=== PATIENT | female | born 1975 | race Caucasian/White ===

== ENCOUNTER 2019-05-12 10:52 | Emergency (ER) | payer OTHER ==
--- OUTSIDE RECORDS SUMMARY | 2019-05-12 10:59 | XMS REPORT | Continuity of Care Document ---
:1975 External Reference #:[id number] Author Name Ish Yeboah, N.P. 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 Onset: 04/14/2015 Depressive disorder Ish Yeboah, N.P. Onset: 04/14/2015 Low back pain Ish Yeboah, N.P. Onset: 07/22/2016 H/O: tubal ligation Ish Yeboah, N.P. Onset: 10/11/2016 Pure hypercholesterolemia Ish Yeboah, N.P. Onset: 12/20/2017 Partial hysterectomy Ish Yeboah, N.P. Onset: 08/01/2018 Social History Type Date Description Comments Sex Unknown Tobacco Use Start: Unknown current cigarette smoker ETOH Use Occasionally consumes alcohol Tobacco Use Start: Unknown Patient is a current smoker, smokes every day Allergies, Adverse Reactions, Alerts Active Allergies Reaction Severity Comments Date Morphine 06/10/2009 Levaquin 08/04/2018 Medications Active Medications SIG Qnty Indications Ordering Date Provider Fluticasone Propionate 2 sprays each 9.900ml [place] 02/27/2019 nostril every Ish N.P. 50mcg/Act Suspension morning Proctozone-HC Use as Directed 30units [place], 01/26/2019 2.5% Cream By MD Deng, N.P. Hydrocortisone use as directed 30gm [place], 10/30/2018 2.5% Cream Mashelle, N.P. Butalbital/Acetaminoph 1-2 by mouth 40tabs [place], 03/23/2018 en/Caffeine every 4h as Mashelle, N.P. 50-325-40mg needed headache Tablets Atorvastatin Calcium 1 by mouth every 90tabs [place], 11/22/2017 10mg day Mashelle, N.P. Tablets Hydrocodone-Acetaminop 1 by mouth every 40tabs [place], 03/21/2017 hen 4-6h as needed Mashelle, N.P. 5-325mg Tablets pain Escitalopram Oxalate take one tablet 90tabs [place], 01/28/2017 20mg by mouth every Mashelle, N.P. Tablets day Loratadine 1 by mouth every 30tabs [place], 06/14/2016 10mg Tablets day Mashelle, N.P. Iron [place], 05/19/2016 325(65Fe) mg Tablets Mashelle, N.P. Valacyclovir HCL 2 by mouth twice 12 [place], 04/19/2016 1gm a day as Mashelle, N.P. Tablets directed Magnesium [place], 09/09/2015 400mg Tablets Mashelle, N.P. Proair HFA 2 puffs qid prn 1can [place], 01/09/2013 108(90Base) Mashelle, N.P. mcg/Act Aerosol Levothyroxine Sodium take one tablet 30tabs [place], by mouth every Mashelle, N.P. 25mcg Tablets day on empty stomach Medications Administered in Office Medication SIG Qnty Indications Ordering Provider Date Milan Cid MD 01/20/2010 Injection Ish Banks, N.P. 01/12/2010 Injection Immunizations CPT Code Status Date Vaccine Reaction Lot # 31236 Given 03/02/2018 Influenza Vac, [id number] Quadrivalent, Split, 0.5mL [place] [address] Given 04/07/2017 Influenza Vac, [id number] Quadrivalent, Split, 0.5mL [place] [address] Given 03/22/2016 Influenza Vac, COUNSELING OF ALL [id number] Quadrivalent, Split, 0.5mL COMPONENTS COMPLETED. [place] Use [address] Given 04/14/2015 Influenza Vac, [id number] Quadrivalent, Split, 0.5mL [place], [place] Use [address] Given 04/09/2014 Afluria Or Fluvirin Flu [id number] Vac Intramuscular Q2038 Given 03/23/2013 Fluzone Trivalent [id number] Immunization 40366 Given 03/26/2010 Afluria Or Fluvirin Flu [id number] Vac Intramuscular 97969 Given 12/31/2009 Tetanus And Diptheria [id number] Toxoids For Adult Use-preservative free Vital Signs Date Vital Result Comment 03/23/2019 9:42am Body Temperature 97.0 F Weight 154.12 lb Heart Rate 72 /min BP Systolic 118 mmHg BP Diastolic 78 mmHg O2 % BldC Oximetry 98 % 02/27/2019 12:54pm Body Temperature 97.2 F Weight 156.12 lb Heart Rate 79 /min BP Systolic 120 mmHg BP Diastolic 86 mmHg O2 % BldC Oximetry 96 % Results Test Date Facility Test Result H/L Range Note Laboratory test finding 12/12/2018 [facility] TSH 0.94 uIU/mL 0.35-4.94 1 Free T4 0.89 ng/dL 0.70-1.48 CBC with Auto Diff-fcmg 10/10/2018 [facility] WBC 11.2 K/uL High 4.1-11.0 2 RBC 4.64 M/uL 4.00-5.40 Hemoglobin 14.5 gm/dL 12.0-16.0 Hematocrit 43.2 % 36.0-47.0 MCV 93.1 fL 80.0-97.0 MCH 31.3 pg 27.0-32.0 MCHC 33.7 g/dL 32.0-36.0 RDW 14.8 % High 11.5-14.5 PLT Count 302 K/ul 140-400 MPV 8.7 FL 7.1-10.7 Neutrophil 74.7 % 35.0-75.0 Lymphocyte 16.5 % 16.0-52.0 Monocyte 6.7 % 2.0-10.0 Eosinophil 1.4 % 0.0-5.0 Basophil 0.7 % 0.0-4.0 Abs Neutrophils 8.4 K/uL High 2.1-8.0 Abs Lymphocytes 1.8 K/uL 0.8-5.5 Abs Monocytes 0.8 K/uL 0.1-1.0 Abs Eosinophils 0.2 K/uL 0.0-0.5 Abs Basophils 0.1 K/uL 0.0-0.3 Comprehensive Met Panel-[facility] 10/10/2018 [facility] Sodium 142 mmol/L 135- 146 3 Potassium 5.0 mmol/L 3.5-5.2 Chloride# 106 mmol/L 97-110 4 Carbon Dioxide 27 mmol/L 24-34 Glucose 84 mg/dL 70-105 BUN 10 mg/dL 6-26 Creatinine 0.7 mg/dL 0.5-1.4 Calcium 9.6 mg/dL 8.5-10.2 Total Protein 6.5 g/dL 6.0-8.0 Albumin 4.2 g/dL 3.6-4.9 Globulin 2.3 g/dL 2.0-3.5 A/G Ratio 1.8 Ratio 1.0-2.2 Total Bilirubin 0.3 mg/dL 0.1-1.3 Alkaline Phosphatase 81 U/L 24-140 Alt 9 U/L 3-42 Ast 13 U/L 8-42 Anion Gap 9 mmol/L 5-15 5 Andressa Egfr >60 >60 6 Non Andressa Egfr >60 >60 7 Laboratory test finding 10/10/2018 [facility] TSH 0.93 uIU/mL 0.35-4.94 Lipid 10/10/2018 [facility] Cholesterol 258 mg/dL High 50-199 Triglycerides 133 mg/dL 30-200 HDL 48 mg/dL 35-85 8 Chol/ HDL Ratio 5.4 ratio 3.7-5.6 VLDL 27 mg/dL 2-29 LDL (Calc) 184 mg/dL High 20-99 9 1 Fax [phone]- [phone] Phone [phone]- [phone] Referring Doctor:Meghna Schmidt M.D. This sample is drawn by:JONNATHAN/ARUNA 2 This sample is drawn by:DL/INCIDENT ANALYST 3 Updated reference range on new analyzer 4 Updated reference range on new analyzer 5 Updated Reference Range 6 Concerning GFR Guidelines for Americans: Normal function or mild renal disease, if clinically at risk: >/= 60 mL/min Moderately decreased: 30-59 Severely decreased: 15-29 Renal failure: <15 7 Concerning GFR Guidelines: Normal function or mild renal disease, if clinically at risk: >/= 60 mL/min Moderately decreased: 30-59 Severely decreased: 15-29 Renal failure: <15 Glomerular Filtration Rate (GFR) is estimated based on the MDRD equation, which assumes a steady state for creatinine as recommended by the National Kidney Disease Education Program in conjunction with the National Institutes of Health and the National Kidney Foundation. Clinical conditions in which it may be necessary to measure GFR by using clearance methods include extremes of age and body size, severe malnutrition or obesity, diseases of skeletal muscle, paraplegia or quadriplegia, vegetarian diet, rapidly changing kidney function, and calculation of the dose of potentially toxic drugs that are excreted by the kidneys. 8 Per NCEP ATP III Guidelines: Results lower than 40 mg/dL are suggestive of increased risk for coronary artery disease. Results > or = to 60 mg/dL are considered a negative risk factor. 9 Per NCEP ATP III Guidelines: Normal Population <130 Patients with medical conditions: CHD/DM Optimal: <100 Borderline high: 130-159 High: 160-189 Very high: >189 Procedures Description No Information Available Medical Devices Description No Information Available Encounters Type Date Location Provider Dx Diagnosis Office Visit 02/27/2019 Ish Abbasi, G43.109 Migraine with aura, 1:00p N.P. not intractable, w/o status migrainosus J30.9 Allergic rhinitis, unspecified M25.511 Pain in RIGHT shoulder Office Visit 01/25/2019 11:00a Ish Abbasi, G43.109 Migraine with aura, N.P. not intractable, w/o status migrainosus E07.9 Disorder of thyroid, unspecified Office Visit 12/25/2018 10:15a Ish Abbasi, E66.9 Obesity, unspecified N.P. G43.109 Migraine with aura, not intractable, w/o status migrainosus Z68.28 Body mass index (BMI) 28.0-28.9, adult Office Visit 11/28/2018 11:45a Ish Abbasi, J01.00 Acute maxillary N.P. sinusitis, unspecified G43.109 Migraine with aura, not intractable, w/o status migrainosus F39 Unspecified mood [affective] disorder Office Visit 11/10/2018 10:30a Brien Ish Yeboah, E07.9 Disorder of thyroid, N.P. unspecified R53.83 Other fatigue D72.829 Elevated white blood cell count, unspecified Office Visit 10/30/2018 11:15a Brien Ish Yeboah, G43.009 Migraine w/o aura, N.P. not intractable, w/o status migrainosus D72.829 Elevated white blood cell count, unspecified Z68.29 Body mass index (BMI) 29.0-29.9, adult Office Visit 10/10/2018 9:45a Brien Ish Yeboah, Z68.29 Body mass index N.P. (BMI) 29.0-29.9, adult R53.83 Other fatigue D64.9 Anemia, unspecified E66.8 Other obesity Z13.31 Encounter for screening for depression Assessments Date Code Description Provider 03/23/2019 G43.109 Migraine with aura, not intractable, [place], Mashelle, N.P. without status migraino 03/23/2019 E03.9 Hypothyroidism, unspecified [place], Mashelle, N.P. 03/23/2019 R53.83 Other fatigue [place], Corneliohelle, N.P. 02/27/2019 G43.109 Migraine with aura, not intractable, [place], Mashelle, N.P. without status migraino 02/27/2019 J30.9 Allergic rhinitis, unspecified [place], Mashelle, N.P. 02/27/2019 M25.511 Pain in RIGHT shoulder [place], Corneliohelle, N.P. 01/25/2019 G43.109 Migraine with aura, not intractable, [place], Mashelle, N.P. without status migraino 01/25/2019 E07.9 Disorder of thyroid, unspecified [place], Mashelle, N.P. 12/25/2018 E66.9 Obesity, unspecified [place], Mashelle, N.P. 12/25/2018 G43.109 Migraine with aura, not intractable, [place], Mashelle, N.P. without status migraino 12/25/2018 Z68.28 Body mass index (BMI) 28.0-28.9, adult [place], Mashelle, N.P. 12/12/2018 E07.9 Disorder of thyroid, unspecified Tiffanie Yeboahle, N.P. 12/12/2018 E07.9 Disorder of thyroid, unspecified Nurses Schedule [place] 12/12/2018 E07.9 Disorder of thyroid, unspecified [facility] 11/28/2018 J01.00 Acute maxillary sinusitis, unspecified Tiffanie Yeboahle, N.P. 11/28/2018 G43.109 Migraine with aura, not intractable, Tiffanie Yeboahle, N.P. without status migraino 11/28/2018 F39 Unspecified mood [affective] disorder Ish Yeboah, N.P. 11/10/2018 E07.9 Disorder of thyroid, unspecified Tiffanie Yeboahle, N.P. 11/10/2018 R53.83 Other fatigue Tiffanie Yeboahle, N.P. 11/10/2018 D72.829 Elevated white blood cell count, Ish Yeboah, N.P. unspecified 10/30/2018 G43.009 Migraine without aura, not intractable, Tiffanie Yeboahle , N.P. without status migra 10/30/2018 D72.829 Elevated white blood cell count, Ish Yeboah, N.P. unspecified 10/30/2018 Z68.29 Body mass index (BMI) 29.0-29.9, adult Tiffanie Yeboahle, N.P. 10/10/2018 Z68.29 Body mass index (BMI) 29.0-29.9, adult Tiffanie Yeboahle, N.P. 10/10/2018 R53.83 Other fatigue Tiffanie Yeboahle, N.P. 10/10/2018 D64.9 Anemia, unspecified Tiffanie Yeboahle, N.P. 10/10/2018 E66.8 Other obesity Tiffanie Yeboahle, N.P. 10/10/2018 Z13.31 Encounter for screening for depression Ish Yeboah, N.P. 10/10/2018 R53.83 Other fatigue [facility] 10/10/2018 D64.9 Anemia, unspecified [facility] 10/10/2018 E66.8 Other [facility] Plan of Treatment 03/23/2019 - Ish Yeboah, N.P.G43.109 Migraine with aura, not intractable, without status migrainoComments:take NSAID as directed at first sign of headacheavoid bright lights/noisereport increasing or chgingheadache ulchrmxrxnzgazuT62.9 Hypothyroidism, unspecifiedComments:stable with medications , euthyroid, recheck q 3 moR53.83 Other fatigueComments:most likely result of lifestylediscussed weight, inactivity, smoking, poor eating habits as contributors to fatigueflu lab results Functional Status Description No Information Available Mental Status Description No Information Available Referrals Refer to Dr Reason for Referral Status Appt Date Meghna Schmidt MD request from Dr. Flores for enlarged thyroid, new Closed nodules [address] [place] [address] [phone]
--- OUTSIDE RECORDS SUMMARY | 2019-05-12 10:59 | XMS REPORT | Continuity of Care Document ---
:1975 External Reference #:[id number] Author Name Ish Yeboah, N.P. 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 Butalbital/Acetaminoph 1-2 by mouth 40tabs [place], 03/23/2018 en/Caffeine every 4h as Mashelle, N.P. 50-325-40mg needed headache Tablets Atorvastatin Calcium 1 by mouth every 90tabs [place], 11/22/2017 10mg day Mashelle, N.P. Tablets Hydrocodone-Acetaminop 1 by mouth every 40tabs [place], 03/21/2017 hen 4-6h as needed Mashelle, N.P. 5-325mg Tablets pain Escitalopram Oxalate take one tablet 90tabs [place], 01/28/2017 20mg by mouth every Mashelle, N.P. Tablets day Loratadine 1 by mouth every 30tabs [place], 06/14/2016 10mg Tablets day Mashelle, N.P. Iron [place], 05/19/2016 325(65Fe) mg Tablets Mashelle, N.P. Valacyclovir HCL 2 by mouth twice 12ta [place], 04/19/2016 1gm a day as Mashelle, N.P. Tablets directed Magnesium [place], 09/09/2015 400mg Tablets Mashelle, N.P. Proair HFA 2 puffs qid prn 1can [place], 01/09/2013 108(90Base) Mashelle, N.P. mcg/Act Aerosol Levothyroxine Sodium take one tablet 30tabs [place], by mouth every Mashelle, N.P. 25mcg Tablets day on empty stomach Medications Administered in Office Medication SIG Qnty Indications Ordering Provider Date Milan Cid MD 01/20/2010 Injection Ish Banks, N.P. 01/12/2010 Injection Immunizations CPT Code Status Date Vaccine Reaction Lot # 57517 Given 04/16/2019 Influenza Vac, [id number] Quadrivalent, Split, 0.5mL [place] [address] Given 03/02/2018 Influenza Vac, [id number] Quadrivalent, Split, 0.5mL [place] [address] Given 04/07/2017 Influenza Vac, [id number] Quadrivalent, Split, 0.5mL [place], [place] Use 57311 Given 03/22/2016 Influenza Vac, COUNSELING OF ALL [id number] Quadrivalent, Split, 0.5mL COMPONENTS COMPLETED[place] [address] Given 04/14/2015 Influenza Vac, [id number] Quadrivalent, Split, 0.5mL Dosage, [place] Use 05424 Given 04/09/2014 Afluria Or Fluvirin Flu [id number] Vac Intramuscular Q2038 Given 03/23/2013 Fluzone Trivalent [id number] Immunization 76915 Given 03/26/2010 Afluria Or Fluvirin Flu [id number] Vac Intramuscular 56997 Given 12/31/2009 Tetanus And Diptheria [id number] Toxoid 7 Years And Older Preserv Free Vital Signs Date Vital Result Comment 04/26/2019 11:22am Body Temperature 97.7 F Weight 154.00 lb Heart Rate 86 /min BP Systolic 134 mmHg BP Diastolic 82 mmHg O2 % BldC Oximetry 96 % 03/23/2019 9:42am Body Temperature 97.0 F Weight 154.12 lb Heart Rate 72 /min BP Systolic 118 mmHg BP Diastolic 78 mmHg O2 % BldC Oximetry 98 % Results Test Date Facility Test Result H/L Range Note Laboratory test finding 12/12/2018 [facility] TSH 0.94 uIU/mL 0.35-4.94 1 Free T4 0.89 ng/dL 0.70-1.48 1 Fax [phone]- [phone] Phone [phone]- [phone] Referring Doctor:Meghna Schmidt M.D. This sample is drawn by:JONNATHAN/ARUNA Procedures Description No Information Available Medical Devices Description No Information Available Encounters Type Date Location Provider Dx Diagnosis Office Visit 04/26/2019 Ish Abbasi, G43.109 Migraine with aura, 11:45a N.P. not intractable, w/o status migrainosus Office Visit 03/23/2019 Ish Abbasi G43.109 Migraine with aura, 10:00a N.P. not intractable, w/o status migrainosus E03.9 Hypothyroidism, unspecified R53.83 Other fatigue Office Visit 02/27/2019 1:00p Ish Abbasi G43.109 Migraine with aura, N.P. not intractable, w/o status migrainosus J30.9 [...] mood [affective] disorder Office Visit 11/10/2018 10:30a Ish Abbasi, E07.9 Disorder of thyroid, N.P. unspecified R53.83 Other fatigue D72.829 Elevated white blood cell count, unspecified Assessments Date Code Description Provider 04/26/2019 G43.109 Migraine with aura, not intractable, [place], Mashelle, N.P. without status migraino 04/16/2019 Z23 Encounter for immunization [place], Tiffaniele, N.P. 03/23/2019 G43.109 Migraine with aura, not intractable, [place], Mashelle, N.P. without status migraino 03/23/2019 E03.9 Hypothyroidism, unspecified [place], Mashelle, N.P. 03/23/2019 R53.83 Other fatigue [place], Mashelle, N.P. 02/27/2019 G43.109 Migraine with aura, not intractable, [place], Mashelle, N.P. without status migraino 02/27/2019 J30.9 Allergic rhinitis, unspecified [place], Mashelle, N.P. 02/27/2019 M25.511 Pain in RIGHT shoulder [place], Tiffaniele, N.P. 01/25/2019 G43.109 Migraine with aura, not intractable, [place], Mashelle, N.P. without status migraino 01/25/2019 E07.9 Disorder of thyroid, unspecified Tiffanie Yeboahle, N.P. 12/25/2018 E66.9 Obesity, unspecified [place], Tiffaniele, N.P. 12/25/2018 G43.109 Migraine with aura, not intractable, [place], Corneliohelle, N.P. without status migraino 12/25/2018 Z68.28 Body mass index (BMI) 28.0-28.9, adult [place], Tiffaniele, N.P. 12/12/2018 E07.9 Disorder of thyroid, unspecified [place], Tiffaniele, N.P. 12/12/2018 E07.9 Disorder of thyroid, unspecified Nurses Schedule [place] 12/12/2018 E07.9 Disorder of thyroid, unspecified [facility] 11/28/2018 J01.00 Acute maxillary sinusitis, unspecified Tiffanie Yeboahle, N.P. 11/28/2018 G43.109 Migraine with aura, not intractable, Tiffanie Yeboahle, N.P. without status migraino 11/28/2018 F39 Unspecified mood [affective] disorder Tiffanie Yeboahle, N.P. 11/10/2018 E07.9 Disorder of thyroid, unspecified Tiffanie Yeboahle, N.P. 11/10/2018 R53.83 Other fatigue Tiffanie Yeboahle, N.P. 11/10/2018 D72.829 Elevated white blood cell count, Tiffanie Yeboahle, N.P. unspecified Plan of Treatment 04/26/2019 - Tiffanie Yeboahle, N.P.G43.109 Migraine with aura, not intractable, without status migrainoComments:take NSAID as directed at first sign of headacheuse meds as directedavoid bright lights/noisereport increasing or chging headache characteristics Functional Status Description No Information Available Mental Status Description No Information Available Referrals Refer to Dr Reason for Referral Status Appt Date Meghna Schmidt MD request from Dr. Flores for enlarged thyroid, new Closed nodules [address] [place] [employer], [place] [id number] [phone]
[2019-05-12 11:30] VITALS: BP 150/93
--- NOTE | 2019-05-12 12:25 | UC ---
Throat Pain/Nasal Power HPI - HPI Summary HPI Summary: 44 year old female presents with 10 day history of progressively worsening nasal congestion, sinus pressure, bilateral ear pain, sore throat, and harsh, non-productive cough. Reports chest feels tight and "cedillo" with coughing. States last night developed a fever of 102.6 F. Reports is a casual smoker. Denies ear drainage, dysphagia, palpitations, dizziness, lightheadedness, abdominal pain, nausea, vomiting, or diarrhea. - History of Current Complaint Chief Complaint: UCRespiratory Stated Complaint: FEVER,COUGH,CONGESTION Time Seen by Provider: 05/12/19 12:09 Hx Obtained From: Patient Hx Last Menstrual Period: 11/11 Pain Intensity: 6 - Allergies/Home Medications Allergies/Adverse Reactions: Allergies Allergy/AdvReac Type Severity Reaction Status Date / [facility] Allergy Swelling Verified 05/12/19 11:22 Of Face,Lips,& Throat morphine Allergy Anaphylatic Verified 05/12/19 11:22 Shock Penicillins Allergy Rash Verified 05/12/19 11:22 Home Medications: Home Medications Escitalopram * [Lexapro *] 20 mg PO QPM 05/12/19 [History Confirmed 05/12/19] HYDROcodone/ACETAMIN 5-325 MG* [[place] 5-325 TAB*] 1 tab QID PRN 05/12/19 [ History Confirmed 05/12/19] Levothyroxine TAB* [Synthroid 25 MCG TAB*] 1 tab QAM 05/12/19 [History Confirmed 05/12/19] PMH/Surg Hx/FS Hx/Imm Hx Endocrine History: Thyroid Disease Neurological History: Migraine - Surgical History Surgical History: Yes Surgery Procedure, Year, and Place: GALLBLADDER. TONSILS. APPENDIX. Partial hysterectomy - Family History Known Family History: Positive: Non-Contributory - Social History Lives: Alone Alcohol Use: None Substance Use Type: None Smoking Status (MU): Light Every Day Tobacco Smoker Type: Cigarettes Amount Used/How Often: 1/2 pack day - Immunization History Most Recent Influenza Vaccination: no Most Recent Tetanus Shot: needs Review of Systems All Other Systems Reviewed And Are Negative: Yes Constitutional: Positive: Fever, Chills, Fatigue Skin: Negative: Rash Eyes: Negative: Drainage, Eye Redness ENT: Positive: Sore Throat, Ear Ache, Nasal Discharge, Sinus Congestion, Sinus Pain/Tenderness Respiratory: Positive: Shortness Of Breath, Cough Cardiovascular: Negative: Palpitations Gastrointestinal: Negative: Abdominal Pain, Vomiting, Diarrhea, Nausea Genitourinary: Positive: Negative Musculoskeletal: Positive: Negative Neurological: Positive: Negative Is Patient Immunocompromised?: No Physical Exam - Summary Physical Exam Summary: GENERAL APPEARANCE: Well developed, well nourished, alert and cooperative, and appears to be in no acute distress. EYES: Conjunctiva clear. No drainage. EARS: External auditory canals and tympanic membranes clear, hearing grossly intact. NOSE: Moderate nasal congestion. No nasal discharge. Maxillary sinus tenderness. THROAT: Pharyngeal erythema with surgically absent tonsils. Uvula midline. NECK: Neck supple, non-tender without lymphadenopathy. CARDIAC: Normal S1 and S2. No S3, S4 or murmurs. Rhythm is regular. There is no peripheral edema, cyanosis or pallor. Extremities are warm and well perfused. Capillary refill is less than 2 seconds. Peripheral pulses intact. LUNGS: Diffuse bilateral wheezing. Harsh, bronchospastic, non-productive cough. ABDOMEN: Positive bowel sounds. Soft, nondistended, nontender. No guarding or rebound. No masses or hepatosplenomegally. MUSKULOSKELETAL: ROM intact to all extremities. No joint erythema or tenderness. Normal muscular development. Normal gait. SKIN: Skin normal color, texture and turgor with no lesions or eruptions. Triage Information Reviewed: Yes Vital Signs: Initial Vital Signs Temp 98.9 F 05/12/19 11:24 Pulse 88 05/12/19 11:24 Resp 18 05/12/19 11:24 BP 150/93 05/12/19 11:24 Pulse Ox 97 05/12/19 11:24 Vital Signs Reviewed: Yes Throat Pain/Nasal Course/Dx - Course Course Of Treatment: 44 year old female presents with 10 day history of progressively worsening nasal congestion, sinus pressure, bilateral ear pain, sore throat, and harsh, non-productive cough. Reports chest feels tight and "cedillo" with coughing. States last night developed a fever of 102.6 F. Reports is a casual smoker. Denies ear drainage, dysphagia, palpitations, dizziness, lightheadedness, abdominal pain, nausea, vomiting, or diarrhea. Afebrile. Hypertensive otherwise vital signs stable. Patient had moderate nasal congest, maxillary sinus tenderness, pharyngeal erythema with surgically absent tonsils, no cervical lymphadenopathy, diffuse bilateral wheezes, a harsh, bronchospastic cough, non- productive cough, and otherwise unremarkable exam. With the duration of symptoms and new onset of fever last night will treat her for an upper respiratory infection with likely secondary bacterial infection and reactive airway disease. She is to start doxycycline 100 mg BID x 10 days, prednisone 50 mg daily x 5 days, albuterol inhaler 2 puffs every 4-6 hours as needed for SOB/ wheezing/cough, as well as symptomatic care. She is to follow up with her PCP in 3-5 days if symptoms do not improve. Anticipatory guidance and warning symptoms reviewed with patient. Verbalizes understanding and agrees with POC. - Differential Dx/Diagnosis Differential Diagnosis/HQI/PQRI: Otitis Media, Pharyngitis, Sinusitis, Tonsillitis, URI Provider Diagnosis: Upper respiratory infection with cough and congestion, Reactive airway disease that is not asthma Discharge ED - Sign-Out/Discharge Documenting (check all that apply): Patient Departure All imaging exams completed and their final reports reviewed: No Studies - Discharge Plan Condition: Stable Disposition: HOME Prescriptions: Albuterol HFA INHALER* [Ventolin HFA Inhaler*] 2 puff INH Q4H PRN #1 mdi PRN Reason: Sob/Wheezing Doxycycline Hyclate 100 mg PO BID #20 tablet predniSONE TAB* [Deltasone TAB*] 50 mg PO DAILY #5 tab Patient Education Materials: Upper Respiratory Infection (ED) Referrals: Ish Yeboah NP [Primary Care Provider] - Additional Instructions: Your history and exam are consistent with an upper respiratory infection. Considering the duration of your symptoms and the onset of fever last night we will start you on an antibiotic for a likely secondary bacterial infection. Start doxycycline 100 mg twice a day for 10 days. Take prednisone 50 mg 1 tab daily for 5 days to help with the inflammation in your airways and wheezing. Use albuterol inhaler 2 puffs every 4-6 hours as needed for shortness of breath , wheezing, or coughing fit. Use a saline rinse kit such as Neti Pot or NeilMed at least twice a day to help thin secretions and promote drainage of the sinuses. Use fluticasone (Flonase) nasal spray 2 sprays each nostril once daily. Take over the counter acetaminophen (Tylenol) or ibuprofen (Advil, Motrin) according to directions as needed for pain or fever. Use salt water gargles several times a day if you have a sore throat. You may also use Chloraseptic spray or Cepacol lonzenges according to directions which contain a numbing medication and can provide some temporary relief from your sore throat. Follow up with your primary care provider in 3-5 days if symptoms persist. Seek immediate medical attention in the emergency room if you have fever greater than 100.5 F despite taking acetaminophen or ibuprofen, have chest pain , difficulty breathing, are unable to swallow, or have any worsening of symptoms. - Billing Disposition and Condition Condition: STABLE Disposition: Home - Attestation Statements Provider Attestation: I was available for consult. This patient was seen by the [facility]. The patient was not presented to , seen by or examined by ok -Vasu Razo MD
== END 2019-05-12 12:47 | disposition home or self-care (01) ==
LOC: UCCORT 10:52
DX: J06.9 Acute upper respiratory infection, unspecified (principal); R05 Cough; R09.81 Nasal congestion; E07.9 Disorder of thyroid, unspecified; J98.8 Other specified respiratory disorders; H92.03 Otalgia, bilateral; F17.210 Nicotine dependence, cigarettes, uncomplicated; Z88.5 Allergy status to narcotic agent; Z88.1 Allergy status to other antibiotic agents; Z88.0 Allergy status to penicillin; Z79.890 Hormone replacement therapy
CPT/HCPCS: 99212; G0463